=== PATIENT | male | born 1975 | race Two or more races ===

== ENCOUNTER 2017-09-12 14:22 | Emergency (ER) | payer MEDICAID ==
[~2017-09-12 14:22] MED LIST: NORPTMEDS CO
[2017-09-12 15:00] VITALS: BP 119/77
== END 2017-09-12 16:19 | disposition home or self-care (01) ==
LOC: ER 14:22
DX: S60.461A Insect bite (nonvenomous) of left index finger, initial encounter (principal); S60.465A Insect bite (nonvenomous) of left ring finger, initial encounter; S60.463A Insect bite (nonvenomous) of left middle finger, initial encounter; L08.9 Local infection of the skin and subcutaneous tissue, unspecified; F17.210 Nicotine dependence, cigarettes, uncomplicated; Z59.0 Homelessness; W57.XXXA Bitten or stung by nonvenomous insect and other nonvenomous arthropods, initial encounter; Y93.89 Activity, other specified; Y92.89 Other specified places as the place of occurrence of the external cause; Y99.8 Other external cause status